=== PATIENT | female | born 1945 | race Caucasian/White ===

== ENCOUNTER 2017-07-11 15:16 | Emergency (ER) | payer BC, MEDICARE ==
--- NOTE | 2017-07-11 15:35 | ER Document Report ---
ED General - General Stated Complaint: CHEST PAIN Time Seen by Provider: 07/11/17 15:31 Mode of Arrival: Medic Information source: Patient Notes: This is a 72-year-old female with a history of hypertension, dyslipidemia, anxiety who was bending over picking up papers when she started experiencing sudden onset of palpitations. She states this may have occurred approximately 12:30 PM. EMS was called to the home after persistent symptoms and they found the patient in SVT with a ventricular rate of 200. She was given Valsalva maneuvers as well as nitroglycerin 3 for chest discomfort. The patient's SVT transition to a sinus rhythm after the Valsalva maneuvers. Patient states she became symptom-free after the Valsalva maneuvers. She had reported having chest pain and shortness of breath associated with the palpitations. The time of onset from the time she called EMS was a few hours. Currently, the patient denies any chest pain and states she feels much better. She does state she took aspirin before EMS arrival. TRAVEL OUTSIDE OF THE [place] IN LAST 30 DAYS: No - HPI Onset: Just prior to arrival Onset/Duration: Sudden Quality of pain: Dull Severity: Moderate Pain Level: 2 Associated symptoms: Chest pain. denies: Fever, Shortness of breath Exacerbated by: Denies Relieved by: Denies Similar symptoms previously: Yes Recently seen / treated by doctor: No - Related Data Allergies/Adverse Reactions: codeine [Codeine] Adverse Reaction (Severe, Verified 07/11/17 17:41) Nausea & Vomiting Past Medical History - General Information source: Patient - Social History Smoking Status: Never Smoker Cigarette use (# per day): No Chew tobacco use (# tins/day): No Frequency of alcohol use: None Drug Abuse: None Lives with: Family Family History: Reviewed & Not Pertinent - Past Medical History Cardiac Medical History: Reports: Hx Hypertension Denies: Hx Coronary Artery Disease, Hx Heart Attack Pulmonary Medical History: Reports: Hx Bronchitis - yrs ago, seldom now, Hx Pneumonia - x2 yrs ago Denies: Hx Asthma, Hx COPD Neurological Medical History: Denies: Hx Cerebrovascular Accident, Hx Seizures GI Medical History: Denies: Hx Hepatitis, Hx Hiatal Hernia, Hx Ulcer Musculoskeltal Medical History: Reports Hx Arthritis - Hands/feet Infectious Medical History: Denies: Hx Hepatitis Past Surgical History: Reports: Hx Appendectomy. Denies: Hx Mastectomy, Hx Open Heart Surgery, Hx Pacemaker - Immunizations Hx Diphtheria, Pertussis, Tetanus Vaccination: Yes - 08/12/10 Tetanus only Review of Systems - Review of Systems Constitutional: denies: Chills, Fever EENT: No symptoms reported Cardiovascular: See HPI Respiratory: No symptoms reported Gastrointestinal: No symptoms reported Genitourinary: No symptoms reported Female Genitourinary: No symptoms reported Musculoskeletal: No symptoms reported Skin: No symptoms reported Hematologic/Lymphatic: No symptoms reported Neurological/Psychological: No symptoms reported Physical Exam - Vital signs Vitals: Resp Pulse Ox 12 94 07/11/17 15:45 07/11/17 15:45 Notes: Physical exam: GENERAL: 72-year-old female, alert and oriented 3, she does appear anxious, she is in no acute distress. HEAD: Atraumatic, normocephalic. EYES: Pupils equal round and reactive to light, extraocular movements intact, sclera anicteric, conjunctiva are normal. ENT: TMs normal, nares patent, oropharynx clear without exudates. Moist mucous membranes. NECK: Normal range of motion, supple without obvious mass or JVD. LUNGS: Breath sounds clear to auscultation bilaterally and equal. No wheezes rales or rhonchi. HEART: Regular rate and rhythm without murmurs, rubs or gallops. ABDOMEN: Soft, normoactive bowel sounds. No tenderness to palpation. No guarding, no rebound. No masses appreciated. EXTREMITIES: Normal range of motion, no pitting or edema. No clubbing or cyanosis. NEUROLOGICAL: Cranial nerves II through XII grossly intact. Normal speech, moving all extremities. PSYCH: Normal mood, normal affect. SKIN: Warm, Dry, normal turgor, no rashes or lesions noted. Course - Re-evaluation Re-evalutation: 07/11/17 17:49 Patient is alert and oriented 3 and resting comfortably and without complaints. Blood pressure is 118/73 and the pulse is 88. 07/11/17 22:19 Note: The patient's second cardiac enzyme shows a significant bump. EKG did show some subtle ST depression in V3 V4. The concern is that the patient may have some underlying coronary disease. I discussed the case with Dr. Malik at [facility] and is willing to accept the patient for transfer. 07/12/17 00:10 transport here. Patient stable 07/12/17 01:30 - Vital Signs Vital signs: Temp Pulse Resp BP Pulse Ox 98.3 F 16 122/60 95 07/12/17 00:20 07/12/17 00:01 07/12/17 00:01 07/12/17 00:01 - Laboratory Result Diagrams: 07/11/17 14:45 07/11/17 14:45 Laboratory results interpreted by me: 07/11/17 07/11/17 14:45 14:45 WBC 13.5 H Absolute Neutrophils 9.9 H Sodium 135.9 L Potassium 3.3 L BUN 24 H Glucose 234 H - Diagnostic Test Radiology reviewed: Image reviewed, Reports reviewed - Chest x-ray shows no infiltrates or effusions - EKG Interpretation by Me Rate: Tachycardia Rhythm: NSR - EKG shows sinus tachycardia with a ventricular rate of 108, no acute ST elevations, Critical Care Note - Critical Care Note Total time excluding time spent on procedures (mins): 60 Discharge - Discharge Clinical Impression: SVT, Non-ST elevation CT Condition: Stable Disposition: [facility] Referrals: JASPER OCHOA MD [Primary Care Provider] - Follow up as needed
[2017-07-11 15:48] LABS: ABSOLUTE BASOPHILS # (AUTO) 0.1 10^3/uL (0.0-0.2); ABSOLUTE EOSINOPHILS # (AUTO) 0.3 10^3/uL (0.0-0.6); ABSOLUTE LYMPHOCYTES (AUTO) 1.8 10^3/uL (0.5-4.7); ABSOLUTE MONOCYTES (AUTO) 1.4 10^3/uL (0.1-1.4); ABSOLUTE NEUT (AUTO) 9.9 10^3/uL (1.7-8.2); BASOPHILS % (AUTO) 0.9 % (0-2); EOSINOPHILS % (AUTO) 2.1 % (0-6); HEMATOCRIT 41.4 % (36.0-47.0); LYMPHOCYTES % (AUTO) 13.1 % (13-45); MEAN CORPUSCULAR HEMOGLOBIN 29.5 pg (27.0-33.4); MEAN CORPUSCULAR HGB CONC 33.7 g/dL (32.0-36.0); MEAN CORPUSCULAR VOLUME 87 fl (80-97); MONOCYTES % (AUTO) 10.4 % (3-13); PLATELET COUNT 314 10^3/uL (150-450); RED BLOOD COUNT 4.74 10^6/uL (3.72-5.28); RED CELL DISTRIBUTION WIDTH 12.7 % (11.5-14.0); SEGMENTED NEUTROPHILS % (AUTO) 73.5 % (42-78); TOTAL CELLS COUNTED % (AUTO) 100 %; WHITE BLOOD COUNT 13.5 10^3/uL (4.0-10.5)
[2017-07-11 16:07] LABS: ALANINE AMINOTRANSFERASE 35 U/L (9-52); ALBUMIN 4.2 g/dL (3.5-5.0); ALKALINE PHOSPHATASE 94 U/L (38-126); ANION GAP 14 (5-19); ASPARTATE AMINO TRANSFERASE 32 U/L (14-36); BILIRUBIN,DIRECT 0.4 mg/dL (0.0-0.4); BILIRUBIN,TOTAL 0.4 mg/dL (0.2-1.3); BLOOD UREA NITROGEN 24 mg/dL (7-20); CALCIUM 9.6 mg/dL (8.4-10.2); CARBON DIOXIDE 23 mmol/L (22-30); CHLORIDE 99 mmol/L (98-107); CREATINE KINASE 84 U/L (30-135); GLUCOSE 234 mg/dL (75-110); POTASSIUM 3.3 mmol/L (3.6-5.0); SODIUM 135.9 mmol/L (137-145); TOTAL PROTEIN 6.7 g/dL (6.3-8.2)
[2017-07-11 16:18] LABS: CREATINE KINASE MB 1.56 ng/mL (<4.55)
[2017-07-11 16:21] LABS: TROPONIN I 0.04 ng/mL
[2017-07-11] MEDS ORDERED: POTASSIUM CHLORIDE 10 MEQ TABLET.SA PO ONE (16:26)
--- NOTE | 2017-07-11 17:12 | RADIOLOGY REPORT (SQ) ---
EXAM DESCRIPTION: CHEST SINGLE VIEW COMPLETED DATE/TIME: 07/11/2017 4:36 pm REASON FOR STUDY: chest pain COMPARISON: 04/24/2013. EXAM PARAMETERS: NUMBER OF VIEWS: One view. TECHNIQUE: Single frontal radiographic view of the chest acquired. RADIATION DOSE: NA LIMITATIONS: None. FINDINGS: LUNGS AND PLEURA: No opacities, masses or pneumothorax. No pleural effusion. MEDIASTINUM AND HILAR STRUCTURES: No masses. Contour normal. HEART AND VASCULAR STRUCTURES: Heart normal in size. Normal vasculature. BONES: No acute findings. HARDWARE: None in the chest. OTHER: No other significant finding. IMPRESSION: NO ACUTE RADIOGRAPHIC FINDING IN THE CHEST. TECHNICAL DOCUMENTATION: JOB ID: [id number] [employer]- All Rights Reserved Reading location - IP/workstation name: [email or web address]
--- NOTE | 2017-07-11 19:10 | EKG REPORT ---
SEVERITY:- ABNORMAL ECG - SINUS TACHYCARDIA PROBABLE LEFT ATRIAL ABNORMALITY CONSIDER RVH OR PMI W/ SEC REPOL ABNORMALITY BORDERLINE QTC PROLONGATION. : Confirmed by: Juvencio Yanez MD 11-Jul-2017 19:09:55
[2017-07-11] MEDS ORDERED: ENOXAPARIN SODIUM INJ 100 MG/1 ML DISP.SYRIN SUBCUT ONE (20:27)
[2017-07-11] MEDS ORDERED: METOPROLOL TARTRATE 25 MG TABLET PO ONE (20:29)
[2017-07-11] MEDS ORDERED: ATORVASTATIN CALCIUM 80 MG TABLET PO ONE (20:29)
--- NOTE | 2017-07-11 22:20 | EKG REPORT ---
SEVERITY:- BORDERLINE ECG - SINUS RHYTHM PROBABLE LEFT ATRIAL ABNORMALITY : Confirmed by: Juvencio Yanez MD 11-Jul-2017 22:20:11
[2017-07-12 00:07] VITALS: BP 122/60
== END 2017-07-12 00:20 | disposition short-term general hospital (02) ==
LOC: ER 15:16
DX: I47.1 Supraventricular tachycardia (principal); I21.4 Non-ST elevation (NSTEMI) myocardial infarction; R07.9 Chest pain, unspecified; I10 Essential (primary) hypertension; Z88.6 Allergy status to analgesic agent
CPT/HCPCS: 93005; 99291; 96372; 36415; 82553; 82550; 83735; 84443; 85025; 80053; 84484; 71045; 93010; J1650

== ENCOUNTER 2018-12-26 09:26 | Emergency (ER) | payer BC, MEDICARE ==
[2018-12-26] MEDS ORDERED: KETOROLAC TROMETHAMINE INJ/PF 30 MG/1 ML SDV IM ONE (10:05)
--- NOTE | 2018-12-26 10:07 | ER Document Report ---
HPI - HPI Time Seen by Provider: 12/26/18 09:46 Pain Level: 4 Notes: Patient is a 73-year-old female with a history of arthritis and hypertension who presents complaining of right foot pain status post injury as well as left elbow pain status post injury prior to arrival. Patient states that she has bad knees and was trying to get on her toilet quickly when her foot slipped and hit against the cabinet. Patient states that she also hit the left elbow off of the toilet roll area. Patient has noticed some mild swelling to the foot since then. She does have pain with weightbearing or palpation to the area. Denies any headache, fever, head injury, neck pain, URI, sore throat, chest pain, palpitations, syncope, cough, shortness of breath, wheeze, dyspnea, abdominal pain, nausea/vomiting/diarrhea, urinary retention, dysuria, hematuria, loss of control of bowel or bladder, numbness/tingling, saddle anesthesia, muscle paralysis/weakness, or rash. - ROS Systems Reviewed and Negative: Yes All other systems reviewed and negative - REPRODUCTIVE Reproductive: DENIES: : Past Medical History - Social History Smoking Status: Unknown if Ever Smoked Family History: Reviewed & Not Pertinent - Past Medical History Cardiac Medical History: Reports: Hx Hypercholesterolemia, Hx Hypertension Denies: Hx Coronary Artery Disease, Hx Heart Attack Pulmonary Medical History: Reports: Hx Bronchitis - yrs ago, seldom now, Hx Pneumonia - x2 yrs ago Denies: Hx Asthma, Hx COPD Neurological Medical History: Denies: Hx Cerebrovascular Accident, Hx Seizures Renal/ Medical History: Denies: Hx Peritoneal Dialysis GI Medical History: Denies: Hx Hepatitis, Hx Hiatal Hernia, Hx Ulcer Musculoskeletal Medical History: Reports Hx Arthritis - Hands/feet Infectious Medical History: Denies: Hx Hepatitis Past Surgical History: Reports: Hx Appendectomy, Hx Nose Surgery - Septum repair, Hx Orthopedic Surgery, Hx Tonsillectomy. Denies: Hx Mastectomy, Hx Open Heart Surgery, Hx Pacemaker - Immunizations Hx Diphtheria, Pertussis, Tetanus Vaccination: Yes - 08/12/10 Tetanus only Vertical Provider Document - CONSTITUTIONAL Agree With Documented VS: Yes Notes: PHYSICAL EXAMINATION: GENERAL: Well-appearing, well-nourished and in no acute distress. LUNGS: Breath sounds clear to auscultation bilaterally and equal. No wheezes rales or rhonchi. HEART: Regular rate and rhythm without murmurs, rubs, gallops. Musculoskeletal: Rt foot/ankle: + mild dorsal lateral foot swelling. No ecchymosis or deformity. FROM to passive/active. Strength 5+/5. N/V intact distal. + tenderness to the dorsal lateral foot. No bony tenderness of the ankle. Achilles intact. Left elbow: + mild ecchymosis noted with LROM to extension. + mild soft tissue tenderness posteriorly. N/V intact distal. Extremities: No cyanosis, clubbing, or edema b/l. Peripheral pulses 2+. Capillary refill less than 3 seconds. NEUROLOGICAL: Normal speech, limping gait. Normal sensory, motor exams PSYCH: Normal mood, normal affect. SKIN: Warm, Dry, normal turgor, no rashes or lesions noted. - INFECTION CONTROL TRAVEL OUTSIDE OF THE [place] IN LAST 30 DAYS: No Course - Re-evaluation Re-evalutation: 12/26/18 Patient is an afebrile, well-hydrated, 73-year-old female who presents to the ED with right foot and left elbow pain which I suspect to be contusions. Vitals are acceptable without any significant tachycardia, tachypnea, or hypoxia. PE is otherwise unremarkable for any neurovascular compromise, obvious tendon/ligament rupture, obvious fracture/dislocation, septic joint. X-rays unremarkable for any acute pathology aside from joint effusion left elbow with out erythema/warmth or evidence for septic joint. Toradol given IM. Patient is nontoxic-appearing. Patient is able to ambulate and weight-bear although she is limping. No other labs or imaging warranted at this time based on H&P. Conservative measures otherwise for symptoms. Recheck with your PCM in 3-5 days. Consider consult orthopedics. Return to the ED with any worsening/concerning symptoms otherwise as reviewed in discharge. Patient is in agreement. - Vital Signs Vital signs: Temp Pulse Resp BP Pulse Ox 98.0 F 98 24 H 151/72 H 97 12/26/18 09:35 12/26/18 09:35 12/26/18 09:35 12/26/18 09:35 12/26/18 09:35 Discharge - Discharge Clinical Impression: Right foot pain, Left elbow pain Condition: Stable Disposition: HOME, SELF-CARE Additional Instructions: Rest, Ice, Compression, Elevation Tylenol/ibuprofen as needed Light stretches daily Strength exercises as able Moist heat and massage may help F/u with your PCP in 3-5 days for a recheck Consider consult(s) with Orthopedics/physical therapy for ongoing/worsening symptoms Return to the ED with any worsening symptoms and/or development of fever, headache, chest pain, palpitations, syncope, shortness of breath, trouble breathing, abdominal pain, n/v/d, muscle weakness/paralysis, numbness/tingling, swelling, redness, or other worsening symptoms that are concerning to you. Forms: Elevated Blood Pressure Referrals: JASPER OCHOA MD [Primary Care Provider] - Follow up as needed [facility] [Provider Group] - Follow up as needed
--- NOTE | 2018-12-26 10:32 | RADIOLOGY REPORT (SQ) ---
EXAM DESCRIPTION: ANKLE RIGHT COMPLETE COMPLETED DATE/TIME: 12/26/2018 10:13 am REASON FOR STUDY: pain s/p injury COMPARISON: None. NUMBER OF VIEWS: Three views. TECHNIQUE: AP, lateral, and oblique radiographic images acquired of the right ankle. LIMITATIONS: None. FINDINGS: MINERALIZATION: Normal. BONES: No acute fracture or dislocation. No worrisome bone lesions. JOINTS: No effusions. SOFT TISSUES: No soft tissue swelling. No foreign body. OTHER: No other significant finding. IMPRESSION: NEGATIVE STUDY OF THE RIGHT ANKLE. NO RADIOGRAPHIC EVIDENCE OF ACUTE INJURY. TECHNICAL DOCUMENTATION: JOB ID: [id number] [employer]- All Rights Reserved Reading location - IP/workstation name: [email or web address]
--- NOTE | 2018-12-26 10:56 | RADIOLOGY REPORT (SQ) ---
EXAM DESCRIPTION: FOOT RIGHT COMPLETE COMPLETED DATE/TIME: 12/26/2018 10:13 am REASON FOR STUDY: fall, pain, swelling, unable to bear weight COMPARISON: None. NUMBER OF VIEWS: Three views. TECHNIQUE: AP, lateral and oblique radiographic images acquired of the right foot. LIMITATIONS: None. FINDINGS: MINERALIZATION: Normal. BONES: Deformity of the distal 1st metatarsal which appears to be related to prior surgery. No acute fracture or dislocation. Plantar calcaneal spur. No worrisome bone lesions. JOINTS: No effusions. SOFT TISSUES: No soft tissue swelling. No foreign body. OTHER: No other significant finding. IMPRESSION: POSTOPERATIVE CHANGES IN THE 1ST METATARSAL. NO RADIOGRAPHIC EVIDENCE OF ACUTE INJURY. TECHNICAL DOCUMENTATION: JOB ID: [id number] [employer]- All Rights Reserved Reading location - IP/workstation name: [email or web address]
--- NOTE | 2018-12-26 11:23 | RADIOLOGY REPORT (SQ) ---
EXAM DESCRIPTION: ELBOW LEFT OVER 2 VIEWS COMPLETED DATE/TIME: 12/26/2018 11:03 am REASON FOR STUDY: left elbow pain s/p injury COMPARISON: None. NUMBER OF VIEWS: Three views. TECHNIQUE: AP, lateral, and both oblique radiographic images acquired of the left elbow. LIMITATIONS: None. FINDINGS: MINERALIZATION: Normal. BONES: No acute fracture or dislocation. No worrisome bone lesions. JOINT: There is a joint effusion. There are calcifications in the joint. SOFT TISSUES: No soft tissue swelling. No foreign body. OTHER: No other significant finding. IMPRESSION: Joint effusion. No fracture is seen. Recommend conservative measures. There are calci fications that may suggest synovial chondromatosis. TECHNICAL DOCUMENTATION: JOB ID: [id number] [employer] All Rights Reserved Reading location - IP/workstation name: [email or web address]
[2018-12-26 11:57] VITALS: BP 128/73
== END 2018-12-26 11:58 | disposition home or self-care (01) ==
LOC: ER 09:26
DX: M79.671 Pain in right foot (principal); M25.522 Pain in left elbow; E78.00 Pure hypercholesterolemia, unspecified; I10 Essential (primary) hypertension
CPT/HCPCS: 99283; 96374; 73610; 73080; 73630; J1885